=== PATIENT | male | born 1990 | race Caucasian/White ===

== ENCOUNTER → 2016-06-01 | Outpatient (CLI) | payer OTHER | LOC: FIMAGING 16:53 | PROVIDERS: ATTEND Podiatrist Foot & Ankle Surgery | DX: Z13.828 Encounter for screening for other musculoskeletal disorder (principal) ==

== ENCOUNTER → 2016-10-12 | Outpatient (CLI) | payer OTHER | LOC: BMCIMAGING 10:21 | PROVIDERS: ATTEND Family Medicine | DX: M79.645 Pain in left finger(s) (principal) ==

== ENCOUNTER 2017-08-02 10:09 | Emergency (ER) | payer OTHER ==
--- NOTE | 2017-08-02 10:33 | EDPHY ---
H & P Stated Complaint: cough, ST, fever starting last night Time Seen by Provider: 08/02/17 10:29 HPI/ROS: HPI: This is a 27-year-old male who presents with Chief Complaint: cough, ST, fever starting last night Location: Throat Quality: Sore Duration: 1 day Signs and Symptoms: + fever, no nausea, no vomiting, no diarrhea, no urinary symptoms, no chest pain, no shortness of breath, no wheezing, + nonproductive cough, + sore throat, no neck stiffness, no joint pain, no swollen glands, no ear pain, no rash Timing: Acute, constant Severity: Moderate Context: Patient visit of family member that had pneumonia in the hospital approximately 2-3 days ago. He reports that yesterday evening he developed a nonproductive cough, sore throat and felt like he had a fever accompanied by chills. Patient is worried that he may be catching pneumonia. Denies any wheezing/shortness of breath/chest pain/lower extremity edema. No history of lung disease. Patient is requesting a strep test no chest x-ray. He took Robitussin and NyQuil last night. Modifying Factors: See above Comment: ROS: see HPI Constitutional: + fever, no chills, no weight loss Eyes: No blurred vision Respiratory: No shortness of breath, + cough Cardiovascular: No chest pain, no palpitations Gastrointestinal: No nausea, no vomiting, no diarrhea, no hematemesis, no blood in stool Genitourinary: No dysuria, no blood in urine Extremities: No myalgias, no edema Neurologic: No weakness, no numbness Skin: No rashes, no petechiae Hematologic: No bruising, no bleeding MEDICAL/SURGICAL/SOCIAL HISTORY: Medical history: Generally healthy. Does not take any regular medications. Surgical history: Denies Social history: Family history noncontributory. CONSTITUTIONAL: Extremely well-appearing adult male, awake and alert, no obvious distress HEENT: Atraumatic and normocephalic, PERRL, EOMI. Nares patent; no rhinorrhea; no nasal mucosal edema. Tympanic membranes clear. Oropharynx clear, tonsils 1 + with no erythema; uvula midline; no exudate and moist pink mucosa. Airway patent. No lymphadenopathy. No meningismus. Cardiovascular: Normal S1/S2, regular rate, regular rhythm, without murmur rub or gallop. PULMONARY/CHEST: Symmetrical and nontender. Clear to auscultation bilaterally. Good air movement. No accessory muscle usage. ABDOMEN: Soft, nondistended, nontender, no rebound, no guarding, no peritoneal signs, no masses or organomegaly. No CVAT. EXTREMITIES: 2/2 pulses, strength 5/5, no deformities, no clubbing, no cyanosis or edema. NEUROLOGICAL: no focal neuro deficits. GCS 15. SKIN: Warm and dry, no erythema. no rash. Good capillary refill. Source: Patient Exam Limitations: No limitations - Medical/Surgical History Hx Asthma: No Hx Chronic Respiratory Disease: No Hx Diabetes: No Hx Cardiac Disease: No Hx Renal Disease: No Hx Cirrhosis: No Hx Alcoholism: No Hx HIV/AIDS: No Hx Splenectomy or Spleen Trauma: No Other PMH: hernia sx - Social History Smoking Status: Current every day smoker Constitutional: Initial Vital Signs Temperature (C) 36.7 C 08/02/17 10:17 Heart Rate 84 08/02/17 10:17 Blood Pressure 125/86 H 08/02/17 10:17 O2 Sat (%) 100 08/02/17 10:17 O2 Delivery Mode Room Air Allergies/Adverse Reactions: Seasonal Allergy Allergy (Mild, Uncoded 08/02/17 10:16) Home Medications: Medication Instructions Recorded ADDERALL 12.5 MG TABLET 08/02/17 Benzocaine/Menthol [Cepacol Sore 1 each MM Q4 PRN #15 lozenge 08/02/17 Throat Lozenge] Benzonatate [Tessalon Pearles (RX)] 100 mg PO Q6 PRN #12 cap 08/02/17 [place] Carbonate 08/02/17 Medical Decision Making - Diagnostics Imaging Results: Imaging Impressions Chest X-Ray 08/02/17 10:28 Impression: Stable negative chest.. ED Course/Re-evaluation: Strep test and chest x-ray ordered per patient request. Vital signs stable upon arrival. Modified Centor Score=0; empiric antibiotics are not indicated Rapid strep test negative. Chest x-ray my read no opacity, no effusion, no pneumothorax Lung exam benign. No indication for bronchodilator/steroids. Symptoms are less than 24 hr; antibiotics are not indicated. Advised supportive care. This patient was seen under the supervision of my secondary supervising physician. I evaluated care for this patient independently. Discussed this patient with Dr. Beckham who did not see the patient. Differential Diagnosis: Differential diagnosis includes but is not limited to viral pharyngitis, strep pharyngitis, pneumonia, upper respiratory infection, sinusitis. - Data Points Laboratory Results: 08/02/17 08/02/17 Unknown 10:27 Group A Strep Screen NEGATIVE (NEGATIVE) Group A Strep DNA Pending Departure - Departure Disposition: Home, Routine, Self-Care Clinical Impression: Upper respiratory infection Qualifiers: URI type: unspecified viral URI Qualified Code(s): J06.9 - Acute upper respiratory infection, unspecified Condition: Good Instructions: Benzonatate (By mouth), Menthol (By mouth), Upper Respiratory Infection (ED) Additional Instructions: Rapid strep test was negative. Chest x-ray does not show signs of pneumonia. It appears that you have a viral syndrome. Consume a minimum of 8-10 glasses of water or electrolyte fluid replacement drinks that include Gatorade, Powerade, Pedialyte. Eat a bland diet for the next 48 hours and then slowly advance as tolerated. Take Tessalon Perles every 6 hours as needed for cough. Take Ibuprofen 600 mg every 8 hr as needed for pain, headache. Use Cepacol lozenges every 4 hours as needed for sore throat Return to the ER immediately if you experience fevers/chills, shortness of breath, abdominal pain, inability to tolerate oral intake, or any other symptoms that concern you. Referrals: [facility],. [Clinic] - 5-7 days, if not improved Prescriptions: Benzocaine/Menthol [Cepacol Sore Throat Lozenge] 1 each MM Q4 PRN #15 lozenge PRN Reason: Sore Throat Benzonatate [Tessalon Pearles (RX)] 100 mg PO Q6 PRN #12 cap PRN Reason: Cough, Moderate
[2017-08-02 10:58] VITALS: BP 125/86
== END 2017-08-02 11:08 | disposition home or self-care (01) ==
DX: J06.9 Acute upper respiratory infection, unspecified (principal); F17.200 Nicotine dependence, unspecified, uncomplicated